=== PATIENT | male | born 1955 | race Caucasian/White ===

== ENCOUNTER → 2017-08-14 09:51 | Outpatient (CLI) | payer BC, SELFPAY ==
[2017-08-14 10:21] LABS: Basophils % 0.5 % (0.1-2.0); Eosinophils # 0.2 K/mm3 (0.0-0.4); Eosinophils % 2.6 % (0.1-12.0); Hematocrit 43.8 % (42.0-52.0); Hemoglobin 14.9 g/dL (14.1-18.0); Lymphocytes # 1.9 K/mm3 (0.7-4.5); Mean Corpuscular Hemoglobin 30.1 pg (27.0-31.2); Mean Corpuscular Volume 88.5 fl (80-94); Monocytes # 0.3 K/mm3 (0.1-1.0); Neutrophils # 3.2 K/mm3 (1.8-7.8); Neutrophils % 56.9 % (37.0-80.0); Platelet Count 152 K/mm3 (142-424); Red Blood Count 4.95 M/mm3 (4.60-6.20); Red Cell Distribution Width 12.3 % (11.5-17.5); White Blood Count 5.6 K/mm3 (4.8-10.8)
[2017-08-14 12:41] LABS: Anion Gap 12.1 mEq/L (5-15); Blood Urea Nitrogen 13 mg/dL (7-18); Carbon Dioxide 30 mmol/L (21.0-32.0); Chloride 102 mmol/L (98-107); Creatinine,Serum 1.08 mg/dL (0.70-1.30); Estimated Glomerular Filt Rate > 60 ml/min (>60); GFR (African American) > 60 ML/MIN (>60); Glucose 119 mg/dL (74-106); Potassium 5.1 mmoL/L (3.5-5.1); Sodium 139 mmol/L (136-145)
== END ==
PROVIDERS: PCP Surgery; Visit Provider Surgery
DX: Z01.812 Encounter for preprocedural laboratory examination (principal); Z12.11 Encounter for screening for malignant neoplasm of colon
CPT/HCPCS: 36415; 80048; 80053; 85025; 93005

== ENCOUNTER 2017-08-16 06:54 | Day surgery (SDC) | payer BC, SELFPAY ==
[2017-08-15 12:52] VITALS: BMI 36.6
--- NOTE | 2017-08-16 07:18 | P.PN_ITS ---
[facility] Anesthesia Checklist - Patient Identification Patient Identification: Arm Band - Structural Data Admitted From: Home Consent for Planned Operative Procedure(s) Verified: Yes - NPO Status Verified Time NPO: 00:00 - Additional verifications Patient : No Anesthesia Reactions: No - Cardiovascular Assessment Heart Sounds: S1 & S2 Pulse Strength: Strong Pulse Rhythm: Regular Peripheral Edema: No - Airway Assessment Dentition: Good Dentition - Neurological Assessment Level of Consciousness: Awake Hx Seizures: No - Genitourinary Assessment Urinary Incontinence: None - Anesthesia Plan Anesthesia Risk discussed: Yes Anesthesia Plan: Verified ASA Class: I Anesthesia Type: MAC [facility] Anesthesia HX I have reviewed the patient's past medical history: Yes Medical History: Reports:: Hypertension Denies:: Diabetes Mellitus Type 1, Diabetes Mellitus Type 2 Laterality Cases: Left: Other, Bilateral: Tonsillectomy Other Surgeries: Yes: Colonoscopy, EGD, Ureter Stent, Other (Eye Surgery,Lap Susana,Left arm skin Graft,). No: Pacemaker Amputation: No Fractures: Yes *Family Hx:: Cancer, Anemia, Kidney Disease
[2017-08-16 07:28] VITALS: BP 173/94; PULSE 85; RESP 18; TEMP 36.8; O2SAT 95
--- NOTE | 2017-08-16 08:10 | SUR.OPER ---
ERBE CAUTERY USED, 200 CAUTERY, 25 COAG. GROUNDED TO RIGHT THIGH, SKIN INTACT AT REMOVAL.
--- NOTE | 2017-08-16 08:30 | HMH.SCOPE ---
- Procedure: Date/Time of Procedure:: 08/16/17 09:15 Procedure Performed:: Colonoscopy with polypectomy Indications:: This is a 61-year-old gentleman in need of screening colonoscopy. Performing Provider:: Jaquan Fowler MD Referring Provider:: Dr. Colby Jensen Sedation:: Monitored anesthesia care Procedure:: After informed consent was obtained, the patient was taken to the endoscopy suite. Monitored anesthesia care ensued after he was transferred to the left lateral decubitus position. Digital rectal exam revealed some hemorrhoidal cushions. No thrombosis or bleeding was seen. The colonoscope was placed in position. The entire colon was evaluated. Bowel preparation was moderate with irrigation and suctioning used to improve visualization. A very small periappendiceal polyp was excised with cold biopsy forceps. A small area of focal inflammation at the hepatic flexure was biopsied. A complex 9 mm soft polyp at the splenic flexure was excised by way of snare polypectomy and cold biopsy forceps. An 8 mm sessile polyp at [address] by way of snare. A somewhat pedunculated polyp at [address] is excised by way of snare. No additional mucosal lesions were noted. A few isolated sigmoid diverticuli were seen. Clips carefully removed and the patient was transferred to recovery. Findings:: Moderate bowel preparation Moderate spasticity Hemorrhoidal cushions with no thrombosis or bleeding A few tiny sigmoid diverticulae Colon polyps (see specimens) Specimens: Small periappendiceal polyp Biopsy focal colitis at hepatic flexure Complex 9 mm sessile polyp at splenic flexure 8 mm sessile polyp at 35 cm Somewhat pedunculated polyp at 20 cm Impressions:: Polyps Recommendations:: Likely repeat colonoscopy in 2 years secondary to size/nature polyps. Final decision is pending pathology. Complications:: No immediate Estimated blood obtained (mL): 1
[2017-08-16 08:40] VITALS: BP 111/72; PULSE 73; RESP 18; O2SAT 96
[2017-08-16 08:50] VITALS: BP 124/76; PULSE 66; RESP 18; O2SAT 96
[2017-08-16 09:05] VITALS: BP 125/77; PULSE 65; RESP 20; TEMP 36.4; O2SAT 96
== END 2017-08-16 09:05 | disposition home or self-care (01) ==
LOC: OUTP 06:57
PROVIDERS: Family Provider Family Medicine; PCP Family Medicine; Visit Provider Surgery
PROC: 0DJD8ZZ Inspection of Lower Intestinal Tract, Via Natural or Artificial Opening Endoscopic (ICD-10-PCS; CPT 45385; principal; 2017-08-16 07:30)
DX: Z12.11 Encounter for screening for malignant neoplasm of colon (principal); K52.9 Noninfective gastroenteritis and colitis, unspecified; K63.5 Polyp of colon; K57.30 Diverticulosis of large intestine without perforation or abscess without bleeding
CPT/HCPCS: 45385; 45380

== ENCOUNTER → 2018-02-26 07:05 | Outpatient (CLI) | payer BC, SELFPAY ==
--- NOTE | 2018-02-26 08:00 | US_ITS ---
US abdomen limited History:Right upper quadrant pain for 2 months, history of cholecystectomy Ordering Physician:Fredrick Escamilla MD Patient Age: 62 years Comparison:None Findings: Pancreas:Unremarkable. No obvious mass or abnormal fluid collection. No ductal dilatation a portion of the tail is obscured by bowel gas. Liver:No focal liver lesions demonstrated. Homogeneous and overall increased echogenicity consistent with diffuse fatty infiltration. The common bile duct is normal in caliber. No intrahepatic biliary ductal dilatation evident Right Kidney:Unremarkable. Normal size and echogenicity. Right kidney measures 11.1 x 6.2 x 6.6 cm. The cortical thickness is 1.4 cm. No hydronephrosis Impression: Post cholecystectomy, diffuse fatty liver, grossly normal-appearing pancreas and right kidney
== END ==
PROVIDERS: Family Provider Family Medicine; PCP Family Medicine; Visit Provider Family Medicine
DX: R10.11 Right upper quadrant pain (principal)
CPT/HCPCS: 76705

== ENCOUNTER → 2020-06-30 10:36 | Outpatient (CLI) | payer BC, SELFPAY ==
[2020-06-30 15:37] LABS: Coronavirus 19 IgG Antibody Negative (Negative); Coronavirus 19 IgM Antibody Negative (Negative)
== END ==
PROVIDERS: Visit Provider Surgery
DX: Z01.818 Encounter for other preprocedural examination (principal); Z12.11 Encounter for screening for malignant neoplasm of colon
CPT/HCPCS: 36415; 86328

== ENCOUNTER 2020-07-01 07:23 | Day surgery (SDC) | payer BC, SELFPAY ==
[2020-06-29 10:34] VITALS: BMI 37.6
[2020-07-01] VITALS (11 sets, daily range): BP systolic 82–162; BP diastolic 55–83; PULSE 49–80; RESP 18–20; TEMP 36.1–36.2; O2SAT 92–100
[2020-07-01 07:51] LABS: POC Glucose,Bedside 109 (70-110)
--- NOTE | 2020-07-01 08:15 | HMH.ANESCL ---
[facility] Anesthesia Checklist - Patient Identification Patient Identification: Arm Band, Verbal (Name & ) - Structural Data Admitted From: Home Planned Operative Procedure/s: colon Consent for Planned Operative Procedure(s) Verified: Yes Verified Documents: History and Physical - NPO Status Verified Time NPO: 00:00 - Additional verifications Patient : No Anesthesia Reactions: No Hx Blood Transfusions: No Blood Transfusion Reaction: No Cephalosporin Allergy: No Previous Colonoscopy: Yes - Cardiovascular Assessment Heart Sounds: S1 & S2 Pulse Strength: Baseline Pulse Rhythm: Regular Peripheral Edema: No - Airway Assessment C-Spine Mobility Assessed: Yes TMJ Mobility Assessed: Yes Dentition: Good Dentition - Neurological Assessment Level of Consciousness: Awake, Alert, Appropriate Hx Seizures: No Numbness or tingling in extremities: No - Anesthesia Plan Anesthesia Risk discussed: Yes Anesthesia Plan: Verified ASA Class: III Anesthesia Type: MAC [facility] History I have reviewed the patient's past medical history: Yes Medical History: Reports:: Diabetes Mellitus Type 2 (diet controlled), Hypertension Denies:: Cancer, Diabetes Mellitus Type 1, Internal Pacemaker, Lung Disease, MRSA, Seizures *Have you ever received a pneumonia vaccine?: No *Have you received a flu vaccine this season?: No Anesthesia experience/problems:: none Laterality Cases: Left: Other, Bilateral: Tonsillectomy Other Surgeries: Yes: Cholecystectomy, Colonoscopy, EGD, Ureter Stent, Other. No: Pacemaker Amputation: No Fractures: Yes - *Social History Last grade of school completed: Advanced degree Smoking Status: Never smoker Alcohol Intake: current Alcohol Intake Frequency:: a few times a week Substance Use Type: denies use *Occupational Status:: employed Housing: house Household Members: spouse *Travel in the last 8 weeks: Inside the [facility] Family Hx:: Non-contributory
--- NOTE | 2020-07-01 09:18 | P.PCN_ITS ---
- Procedure: Date: 07/01/20 Patient Date of :: 1955 Procedure Performed:: Colonoscopy with polypectomy Indications:: History of large complex colon polyps Performing Provider:: Jaquan Fowler MD Referring Provider:: . Sedation:: Monitored anesthesia care Procedure:: After informed consent was obtained the patient was taken to the endoscopy suit e. Sedation ensued after the patient was transferred to the left lateral decubitus position. Pulse, blood pressure, and oxygen saturation were monitored throughout the procedure. Digital rectal exam revealed no significant abnormality. The colonoscope was placed in position. The entire colon was evaluated. The colonoscope was carefully removed and the patient was transferred to recovery in stable condition. Please see findings and specimens below for detail. Findings:: Bowel preparation moderate Severe spasticity and lack of relaxation Hemorrhoidal cushions with no active bleeding or thrombosis Multiple complex polyps (see specimens) Specimens:: Lobulated sessile proximal right colon polyp (snare) Large complex sessile polyp at the hepatic flexure (snare) Adjacent sessile transverse colon polyps (snare) Large complex sessile polyp at 55 cm and adjacent polyp (snare) Recommendations:: Timing of repeat colonoscopy is pending pathology but will likely be between 1-2 years secondary to history of significant polyps, multiple complex polyps and short-term repeat evaluation, spasticity/lack of relaxation, and moderate bowel preparation. Complications:: No immediate Estimated blood obtained (mL): 1
--- NOTE | 2020-07-01 11:30 | XR_ITS ---
PROCEDURE: XR ACUTE ABDOMEN SERIES CLINICAL INDICATION: pain s/p colonoscopy Abdominal pain after colonoscopy COMPARISON: No exams were available for comparison FINDINGS: A the chest shows some nodularity in lung base mm. Remaining lungs are clear. And show bowel gas Other findings:None. IMPRESSION: No acute findings. Dictated by: Gabriel Jansen MD 07/01/2020 11:50 Gabriel Jansen MD in [facility] 07/01/2020 11:50
== END 2020-07-01 12:34 | disposition home or self-care (01) ==
LOC: OUTP 07:24
PROVIDERS: PCP Family Medicine; Visit Provider Surgery
PROC: 0DJD8ZZ Inspection of Lower Intestinal Tract, Via Natural or Artificial Opening Endoscopic (ICD-10-PCS; CPT 45385; principal; 2020-07-01 08:30)
DX: Z12.11 Encounter for screening for malignant neoplasm of colon (principal); K56.2 Volvulus; K63.5 Polyp of colon; Z86.010 Personal history of colon polyps; E11.9 Type 2 diabetes mellitus without complications; I10 Essential (primary) hypertension; Z90.49 Acquired absence of other specified parts of digestive tract; Z90.89 Acquired absence of other organs; Z88.8 Allergy status to other drugs, medicaments and biological substances; Z79.899 Other long term (current) drug therapy
CPT/HCPCS: 45385; 74021; 82962; J2704

== ENCOUNTER → 2021-01-26 16:08 | Outpatient (CLI) | payer BC, SELFPAY ==
[2021-01-26 16:11] LABS: Microscopic, Urine URINE MICROSCOPIC (MICROSCOPIC)
[2021-01-26 17:50] LABS: Basophils # 0.1 K/mm3 (0-0.2); Basophils % 0.7 % (0.1-2.0); Eosinophils # 0.2 K/mm3 (0.0-0.4); Eosinophils % 2.9 % (0.1-12.0); Hematocrit 40.4 % (42.0-52.0); Hemoglobin 14.6 g/dL (14.1-18.0); Lymphocytes # 2.8 K/mm3 (0.7-4.5); Lymphocytes % 42.8 % (10-50); Mean Corpuscular HGB Conc 36.3 g/dL (31.8-35.4); Mean Corpuscular Hemoglobin 30.7 pg (27.0-31.2); Mean Corpuscular Volume 84.6 fl (80-94); Mean Platelet Volume 9.1 fl (7.4-10.4); Monocytes # 0.4 K/mm3 (0.1-1.0); Neutrophils # 3.1 K/mm3 (1.8-7.8); Neutrophils % 47.5 % (37.0-80.0); Platelet Count 150 K/mm3 (142-424); Red Blood Count 4.77 M/mm3 (4.60-6.20); Red Cell Distribution Width 12.6 % (11.5-17.5); White Blood Count 6.6 K/mm3 (4.8-10.8)
[2021-01-26 17:51] LABS: Anion Gap 10.1 mEq/L (5-15); Blood Urea Nitrogen 18 mg/dl (9-20); Calcium 9.5 mg/dl (8.4-10.2); Carbon Dioxide 27 mmol/L (22.0-30.0); Chloride 103 mmol/L (98-107); Estimated Glomerular Filt Rate 67 ml/min (>60); GFR (African American) 81 ML/MIN (>60); Glucose 103 mg/dl (74-100); Potassium 4.1 mmoL/L (3.5-5.1); Sodium 136 mmol/L (136-145)
[2021-01-26 19:52] LABS: Appearance,Urine CLEAR (Clear); Bilirubin,Urine Negative (Negative); Blood, Urine Negative (Negative); Color,Urine YELLOW (Yellow); Glucose,Urine (UA) Negative (Negative); Ketones,Urine Negative (Negative); Leukocyte Esterase,Urine Negative (Negative); Nitrate,Urine Negative (Negative); Protein,Urine Negative (Negative); Urobilinogen,Urine 0.2 EU/dl (0.2)
[2021-01-26 20:10] LABS: Bacteria,Urine Trace /lpf; Squamous Epithelial Cell,Urine Occasional #/hpf (0-5); WBC,Urine Occasional #/hpf (0-3)
== END ==
PROVIDERS: Visit Provider Surgery
DX: Z01.812 Encounter for preprocedural laboratory examination (principal); Z20.822 Contact with and (suspected) exposure to COVID-19; K42.9 Umbilical hernia without obstruction or gangrene
CPT/HCPCS: 36415; 80048; 81001; 85025; U0003

== ENCOUNTER 2021-01-28 06:16 | Day surgery (SDC) | payer BC, SELFPAY ==
[2021-01-20 13:24] VITALS: BMI 37.6
[2021-01-28] VITALS (12 sets, daily range): BP systolic 99–125; BP diastolic 58–71; PULSE 58–70; RESP 12–18; TEMP 36.4–38; O2SAT 94–97
--- NOTE | 2021-01-28 06:32 | ECG_ITS ---
APPROVED REPORT Exam: Resting ECG HR:71 bpm ECG Measurements Heart Rate 71 AXES NE 182 P 10 QRSd 90 QRS -9 QT 390 T 20 QTc 423 Conclusion Normal sinus rhythm Normal ECG Electronically signed by : Jose Potts, 01/29/2021 07:19:54
[2021-01-28 07:00] LABS: POC Glucose,Bedside 140 (70-110)
--- NOTE | 2021-01-28 08:02 | HMH.OPNOTE ---
Date of procedure: 01/28/21 Pre-op Diagnosis:: Umbilical hernia Post-op Diagnosis:: Same Procedure performed:: Open umbilical hernia repair (no mesh) Surgeon:: Jaquan Fowler MD MEAT DEPARTMENT MANAGER:: Semaj Wilder Anesthesia: LMA Estimated blood loss (mL): 5 Operative findings:: 1 cm defect primarily repaired with 0 Ethibond Operative note:: After informed consent was obtained the patient was taken to the operating room and placed in the supine position. General anesthesia with laryngeal mask airway was achieved. The abdomen was prepped and draped in a sterile fashion. After infiltration with local anesthetic a curvilinear infraumbilical incision was made. The umbilicus was carefully elevated as the stalk was transected. A 1 cm defect was noted. Underlying omentum was visualized after a small hernia sac was transected. 0 Ethibond was utilized to complete a primary repair. The umbilical stump was reapproximated with nondyed 2-0 Vicryl and skin was closed with 4-0 Monocryl. Steri-Strips were applied. The patient's anesthetic agents were reversed and his laryngeal mask airway was removed prior to transfer to recovery. Condition: stable Disposition: PACU Specimens:: None Complications:: No immediate
--- NOTE | 2021-01-28 08:09 | P.PN_ITS ---
[facility] Anesthesia Checklist - Structural Data Admitted From: Home Planned Operative Procedure/s: umbilical hernia rpr Consent for Planned Operative Procedure(s) Verified: Yes - Additional verifications Anesthesia Reactions: No Hx Blood Transfusions: No Blood Transfusion Reaction: No - Airway Assessment C-Spine Mobility Assessed: Yes TMJ Mobility Assessed: Yes Dentition: Good Dentition - Neurological Assessment Level of Consciousness: Awake, Alert, Appropriate - Anesthesia Plan Anesthesia Risk discussed: Yes Anesthesia Plan: Verified ASA Class: II Anesthesia Type: General [facility] History I have reviewed the patient's past medical history: Yes Medical History: Reports:: Diabetes Mellitus Type 2, Hypertension Denies:: Cancer, Diabetes Mellitus Type 1, Internal Pacemaker, Lung Disease, MRSA, Seizures *Have you ever received a pneumonia vaccine?: No *Have you received a flu vaccine this season?: No Other Medical History: Denies: Blood Transfusion Reaction Anesthesia experience/problems:: none Laterality Cases: Right: Other, Bilateral: Tonsillectomy Other Surgeries: Yes: Cholecystectomy, Colonoscopy, EGD, Ureter Stent, Other. No: Pacemaker Amputation: No Fractures: Yes - *Social History Last grade of school completed: Some college Smoking Status: Current some day smoker Tobacco Type: cigars # Packs/Day (cigarettes): 0 Alcohol Intake: current Alcohol Intake Frequency:: a few times a month Substance Use Type: denies use *Occupational Status:: employed Housing: house Household Members: spouse *Travel in the last 8 weeks: Inside the [facility] Family Hx:: Cancer, Coronary Artery Disease, Heart Attack, Hypertension, Kidney Disease
--- NOTE | 2021-01-28 08:10 | HMH.ANESI ---
[facility] Anesthesia Record Part I Intake, IV Amount: 1,000 Estimated blood loss (mL): 0 Urine output (mL): 300 Blood Pressure: 99/64 SaO2: 94 Pulse Rate: 68 Respiratory Rate: 12 Temperature: 97.6 F Patient is:: Awake, Stable Stable to PACU at:: 08:05
[2021-01-28 08:21] LABS: POC Glucose,Bedside 128 (70-110)
--- NOTE | 2021-01-28 10:07 | HMH.ANESII ---
[facility] Anesthesia Record Part II Discharge Time: 08:34 Destination: Surgical Day Care (OP Surgery) PACU nurse assessment reviewed?: Yes Patient Condition:: Good Anesthesia Complications:: None Swallowing reflex intact?: Yes Cyanosis?: No Blood Pressure: 107/67 Pulse Rate: 64 Temperature: 97.6 F Mental Status: Alert & Oriented Pain level:: 0 Nausea and/or vomitting:: None Intake, IV Amount: 0
[2021-01-28 13:28] LABS: Microscopic,Cath URINE MICROSCOPIC (MICROSCOPIC)
[2021-01-28 13:29] LABS: Appearance,Urine/Cath CLEAR (Clear); Bilirubin,Cath Negative (Negative); Blood, Urine/Cath Negative (Negative); Color,Urine/Cath YELLOW (Yellow); Glucose,Urine/Cath (UA) Negative (Negative); Ketones,Urine/Cath Negative (Negative); Leukocyte Esterase,Cath Negative (Negative); Nitrate,Cath Negative (Negative); PH,Urine/Cath 5.5 (5.0-8.5); Protein,Urine/Cath Negative (Negative); Specific Gravity, Urine/Cath 1.025 (1.005-1.030); Urobilinogen,Cath 0.2 EU/dl (0.2)
[2021-01-28 13:40] LABS: Bacteria,Urine/Cath 1+ /lpf; Squamous Epithelial Ur./Cath Occasional #/hpf (0-5)
== END 2021-01-28 09:25 | disposition home or self-care (01) ==
PROVIDERS: PCP Family Medicine; Visit Provider Surgery
PROC: (CPT 49585; principal; 2021-01-28 07:30)
DX: K42.9 Umbilical hernia without obstruction or gangrene (principal); E11.9 Type 2 diabetes mellitus without complications; I10 Essential (primary) hypertension; Z72.0 Tobacco use; Z90.49 Acquired absence of other specified parts of digestive tract; Z80.9 Family history of malignant neoplasm, unspecified; Z82.3 Family history of stroke; Z82.49 Family history of ischemic heart disease and other diseases of the circulatory system; Z84.1 Family history of disorders of kidney and ureter; Z88.8 Allergy status to other drugs, medicaments and biological substances; Z79.899 Other long term (current) drug therapy
CPT/HCPCS: 49585; 81001; 82962; 93005; 96374; J2405

== ENCOUNTER 2024-01-24 15:36 | Outpatient (CLI) | payer BC, SELFPAY ==
[2024-01-26 15:01] LABS: Deamidated Gliadin Abs, IgA 4 units (0-19); Deamidated Gliadin Abs, IgG 3 units (0-19); Tissue Transglutaminase IgA Ab <2 U/mL (0-3); Tissue Transglutaminase IgG Ab <2 U/mL (0-5)
[2024-01-28 17:11] LABS: Endomysial IgA Antibody Negative (Negative)
[2024-01-30 09:16] LABS: Reticulin IgA Antibody Negative titer (Neg:<1:2.5)
== END 2024-01-24 23:59 | disposition home or self-care (01) ==
LOC: LAB 15:38
PROVIDERS: PCP Family Medicine
DX: I25.10 Atherosclerotic heart disease of native coronary artery without angina pectoris (principal); R10.13 Epigastric pain; R19.4 Change in bowel habit; Z79.02 Long term (current) use of antithrombotics/antiplatelets; Z80.0 Family history of malignant neoplasm of digestive organs; F17.200 Nicotine dependence, unspecified, uncomplicated; I10 Essential (primary) hypertension
CPT/HCPCS: 36415; 83516; 86255; 86256

== ENCOUNTER 2024-09-05 09:49 | Outpatient (CLI) | payer BC, SELFPAY ==
[2024-09-09 10:49] LABS: Lipoprotein A 65.6
== END 2024-09-05 23:59 | disposition home or self-care (01) ==
LOC: LAB 09:51
PROVIDERS: PCP Family Medicine; Visit Provider Nurse Practitioner Family
DX: I25.10 Atherosclerotic heart disease of native coronary artery without angina pectoris (principal); I10 Essential (primary) hypertension; Z95.5 Presence of coronary angioplasty implant and graft
CPT/HCPCS: 36415; 83695